=== PATIENT | female | born 1970 | race Caucasian/White ===

== ENCOUNTER 2016-06-27 18:51 | Observation (INO) | payer OTHER ==
[2016-06-27 19:00] VITALS: BMI 32.0
[2016-06-27] MEDS ORDERED: KETOROLAC TROMETHAMINE 30 MG/1 ML VIAL IVPUSH ONE (19:52)
[2016-06-27] MEDS ORDERED: SODIUM CHLORIDE 0.9% 1000 ML INFUS.BAG IV ONE (19:52)
[2016-06-27] MEDS ORDERED: KETOROLAC TROMETHAMINE 30 MG/1 ML VIAL ONE (20:28)
[2016-06-27 20:43] LABS: MCH 29.8 pg (25.7-33.7); MCHC 33.5 g/dl (32.0-36.0); MEAN CELL VOLUME 89.1 fl (80-96); MEAN PLT VOLUME 6.9 fl (7.5-11.1); PLATELET COUNT 393 K/MM3 (134-434); RDW 14.3 % (11.6-15.6); WHITE BLOOD COUNT 13.1 K/mm3 (4.0-10.0)
[2016-06-27 21:00] LABS: URINE APPEARANCE CLEAR; URINE BILIRUBIN NEGATIVE (NEGATIVE); URINE COLOR LTYELLOW; URINE GLUCOSE (UA) NEGATIVE (NEGATIVE); URINE KETONE NEGATIVE (NEGATIVE); URINE LEUK ESTERASE NEGATIVE (NEGATIVE); URINE NITRITE NEGATIVE (NEGATIVE); URINE PROTEIN NEGATIVE (NEGATIVE); URINE UROBILINOGEN NEGATIVE E.U./dl (0.2-1.0)
[2016-06-27 21:01] LABS: URINE BLOOD 1+ (NEGATIVE)
[2016-06-27 21:20] LABS: ALBUMIN 4.5 g/dl (3.4-5.0); ALK PHOS 84 U/L (45-117); ANION GAP 7 (8-16); BILIRUBIN,TOTAL 0.5 mg/dL (0.2-1.0); CALCIUM 8.7 mg/dL (8.5-10.1); CO2 29 mmol/L (21-32); CREATININE 0.7 mg/dL (0.55-1.02); GLUCOSE,RANDOM 99 mg/dL (74-106); SGOT/AST 24 U/L (15-37); SGPT/ALT 37 U/L (12-78); TOT PROT 7.7 g/dl (6.4-8.2)
--- NOTE | 2016-06-27 21:50 | PDOC ---
History of Present Illness - General Chief Complaint: Pain Stated Complaint: ABDOMINAL PAIN Time Seen by Provider: 06/27/16 19:36 - History of Present Illness Initial Comments: 06/27/16 21:39 CHIEF COMPLAINT: abdominal pain HISTORY OF PRESENT ILLNESS: 45 yo F with no significant PMH presents to ED with new sudden onset abdominal pain. Patient states she was usnig the bathrom earlier this afternoon around 3 pm when she started having severe pain to her right side. She reports feeling some pain/numbness radiating across her side toward her back and also down to her R leg. She states that pain is better when she does not move. She had one episode of loose brown stool today, but denies any nausea or vomiting. She denies any loss of bowel or bladder function , loss of sensation to extremities. She reports having blood to her rectum when wiping 2 weeks ago which she associated with her last period, which was 2 weeks ago. She denies any pain on urination, blood in urine, or urinary frequency. No recent travel or sick contacts. PAST MEDICAL HISTORY: Denies past medical history FAMILY HISTORY: Denies SOCIAL HISTORY: Lives at home with . Denies tobacco, alcohol, illicit drug use. SURGICAL HISTORY: Breast reduction 20 years ago ALLERGIES: No known drug allergies REVIEW OF SYSTEMS General/Constitutional: Denies fever or chills. Denies weakness, weight change. HEENT: Denies change in vision. Denies ear pain or discharge. Denies sore throat. Cardiovascular: Denies chest pain or shortness of breath. Respiratory: Denies cough, wheezing, or hemoptysis. Gastrointestinal: Pain to R abdomen. Denies nausea, vomiting, diarrhea or constipation. Denies rectal bleeding. Genitourinary: Denies dysuria, frequency, or change in urination. Musculoskeletal: Denies joint or muscle swelling or pain. Denies neck or back pain. Skin and breasts: Denies rash or easy bruising. Neurologic: Denies headache, vertigo, loss of consciousness, or loss of sensation. PHYSICAL EXAM General Appearance: Well-appearing, appropriately dressed. No apparent distress , no intoxication. HEENT: EOMI, PERRLA, normal ENT inspection, normal voice, TMs normal, pharynx normal. No conjunctival pallor. No photophobia, scleral icterus. Neck: Supple. Trachea midline. No tenderness, rigidity, carotid bruit, stridor , lymphadenopathy, or thyromegaly. Respiratory/Chest: Lungs CTAB. No shortness of breath, chest tenderness, respiratory distress, accessory muscle use. No crackles, rales, rhonchi, stridor , wheezing, dullness Cardiovascular: RRR. S1, S2. No JVD, murmur, bradycardia, tachycardia. Vascular Pulses: Dorsalis-Pedis (R): 2+, Dorsalis-Pedis (L): 2+ Gastrointestinal/Abdominal: Marked RLQ tenderness. Normal bowel sounds. Abdomen soft, non-distended. No tenderness or rebound tenderness. No organomegaly, pulsatile mass, guarding, hernia, hepatomegaly, splenomegaly. Lymphatic: No adenopathy, tenderness. Musculoskeletal/Extremities: R CVA tenderness. Normal inspection. FROM of all extremities, normal capillary refill. Pelvis Stable. No tenderness to extremities, pedal edema, swelling, erythema or deformity. Integumentary: Appropriate color, dry, warm. No cyanosis, erythema, jaundice or rash Neurologic: groundskeeper supervisor II-XII intact. Fully oriented, alert. Appropriate mood/affect. Motor strength 5/5. No appreciable EOM palsy, facial droop or sensory deficit. 06/27/16 21:57 06/27/16 23:53 Past History - Past Medical History Allergies/Adverse Reactions: Allergies Allergy/AdvReac Type Severity Reaction Status Date / Time No Known Allergies Allergy Verified 06/27/16 18:56 Home Medications: Ambulatory Orders NK [No Known Home Medication] 11/22/15 Other medical history: denies - Immunization History Immunization Up to Date: Yes - Psycho/Social/Smoking Cessation Hx Anxiety: No Suicidal Ideation: No Smoking History: Current every day smoker Have you smoked in the past 12 months: Yes Number of Cigarettes Smoked Daily: 5 Information on smoking cessation initiated: No Hx Alcohol Use: No Drug/Substance Use Hx: No Substance Use Type: None *Physical Exam - Vital Signs Last Vital Signs Temp Pulse Resp BP Pulse Ox 97.5 F L 85 22 115/40 98 06/27/16 18:57 06/27/16 18:57 06/27/16 18:57 06/27/16 18:57 06/27/16 18:57 ED Treatment Course - LABORATORY CBC & Chemistry Diagram: 06/27/16 20:23 06/27/16 20:23 - ADDITIONAL ORDERS Additional order review: Laboratory Results 06/27/16 06/27/16 20:36 20:23 Sodium 136 Potassium 3.7 Chloride 100 Carbon Dioxide 29 Anion Gap 7 L BUN 14 Creatinine 0.7 Creat Clearance w eGFR > 60 Random Glucose 99 Calcium 8.7 Total Bilirubin 0.5 AST 24 ALT 37 Alkaline Phosphatase 84 Total Protein 7.7 Albumin 4.5 Lipase 185 Urine Color Ltyellow Urine Appearance Clear Urine pH 5.0 Ur Specific [place] 1.010 Urine Protein Negative Urine Glucose (UA) Negative Urine Ketones Negative Urine Blood 1+ H Urine Nitrite Negative Urine Bilirubin Negative Urine Urobilinogen Negative Ur Leukocyte Esterase Negative Urine HCG, Qual Negative 06/27/16 20:23 RBC 4.36 MCV 89.1 MCHC 33.5 RDW 14.3 MPV 6.9 L - RADIOLOGY Radiology Studies Ordered: Category Date Time Status SPIRAL- RENAL-STONE CT [CT] Stat CT Scan 06/27/16 21:11 Ordered - Medications Given in the ED: ED Medications Discontinued Medications Generic Name Dose Route Start Last Admin Trade Name Freq PRN Reason Stop Dose Admin Ketorolac Tromethamine 30 mg 06/27/16 19:52 06/27/16 20:29 Toradol Injection - IVPUSH 06/27/16 19:53 30 mg ONCE ONE Administration Sodium Chloride 500 ml 06/27/16 19:52 06/27/16 20:29 Normal Saline - IV 06/27/16 19:53 500 ml ONCE ONE Administration Medical Decision Making - Medical Decision Making 06/27/16 23:53 45 yo F with no significant PMH presents to ED with new sudden onset abdominal pain. DDx: pancreatitis, appendicitis, acute cholecystitis, diverticulitis, colitis, gastritis, GERD, ovarian torson, ovarian cyst rupture. SBO considered but unlikely given recent passage of loose stool -CBC, CMP, lipase -30 mg Toradol IV -UA, UCx, UPreg 06/28/16 00:05 Labs: UA 1+ blood, WBC 13.1, otherwise unremarkable Spiral CT results: No CT evidence of urolithiasis or obstructive uropathy. No definite acute pathology is identified. Multiple mildly prominent mesenteric lymph nodes are noted centrally. Correlation with 3-4 month follow up with MRI or CT is suggested to document stability. Very small umbilical hernia containing fat only. Read by Gaston Fu MD. Will order transvaginal/transabdominal ultrasound to r/o ovarian torsion, cyst rupture. Ultrasound results negative. Patient reassessed, states she is still in severe pain. -4mg morphine -4 mg Zofran Discussed case with patient's PCP Dr. Elio Guerrero, who accepts patient for inpatient admission for intractable abdominal pain. GI consult Lantin placed. *DC/Admit/Observation/Transfer Diagnosis at time of Disposition: Abdominal pain Qualifiers: Abdominal location: right lower quadrant Qualified Code(s): R10.31 - Right lower quadrant pain - Discharge Dispostion Admit: Yes - Referrals Referrals: Elio Guerrero MD [Primary Care Provider] -
[2016-06-27] MEDS ORDERED: morphine CARPU-JECT 4 MG/1 ML DISP.SYRIN IVPUSH ONE (23:42)
[2016-06-27] MEDS ORDERED: morphine CARPU-JECT 4 MG/1 ML DISP.SYRIN ONE (23:44)
[2016-06-27] MEDS ORDERED: ONDANSETRON 4 MG/2 ML VIAL ONE (23:49)
[2016-06-27] MEDS ORDERED: FAMOTIDINE 20 MG/50 ML IVPB 50 ML IVPB ONE (23:54)
[2016-06-28] MEDS ORDERED: METRONIDAZOLE 500 MG PREMIXED 100 ML IVPB ONE ×2 (00:03→00:28)
[2016-06-28] MEDS ORDERED: FAMOTIDINE 20 MG/50 ML IVPB 50 ML IVPB ONE (00:28)
[2016-06-28] MEDS: SODIUM CHLORIDE 0.45% 1,000 ML IV SCH (00:34)
[2016-06-28] MEDS ORDERED: HYDROmorphone HCL CARPU-JECT 1 MG/1 ML DISP.SYRIN IVPUSH ONE (03:33)
[2016-06-28] MEDS ORDERED: HYDROmorphone HCL CARPU-JECT 1 MG/1 ML DISP.SYRIN ONE (03:38)
[2016-06-28] MEDS ORDERED: HYDROmorphone HCL 2 MG TABLET PO ONE ×2 (08:29→09:40)
[2016-06-28 09:30] LABS: BASOPHIL 1.3 % (0-2.0); EOSINOPHIL 5.5 % (0-4.5); MCH 30.5 pg (25.7-33.7); MEAN CELL VOLUME 89.6 fl (80-96); MEAN PLT VOLUME 6.7 fl (7.5-11.1); NEUTROPHILS 61.1 % (42.8-82.8); PLATELET COUNT 348 K/MM3 (134-434); RDW 14.2 % (11.6-15.6); WHITE BLOOD COUNT 9.4 K/mm3 (4.0-10.0)
[2016-06-28] MEDS ORDERED: HYDROmorphone HCL 2 MG TABLET ONE (09:46)
[2016-06-28] MEDS ORDERED: POLYETHYLENE GLYCOL 3350 255 GM BTL PO ONE (10:24)
[2016-06-28] MEDS ORDERED: ONDANSETRON 4 MG TABLET PO ONE (12:23)
[2016-06-28] MEDS ORDERED: ONDANSETRON *ODT* 4 MG TABLET ONE (12:25)
[2016-06-28 13:15] LABS: ALBUMIN 4.1 g/dl (3.4-5.0); ANION GAP 4 (8-16); BILIRUBIN,TOTAL 0.7 mg/dL (0.2-1.0); CALCIUM 8.3 mg/dL (8.5-10.1); CO2 30 mmol/L (21-32); CREATININE 0.7 mg/dL (0.55-1.02); GLUCOSE,RANDOM 106 mg/dL (74-106); SGOT/AST 25 U/L (15-37); SGPT/ALT 34 U/L (12-78); TOT PROT 7.5 g/dl (6.4-8.2)
[2016-06-28 13:18] LABS: ALK PHOS 79 U/L (45-117); TROPONIN I < 0.02 ng/ml (0.00-0.05)
--- NOTE | 2016-06-28 13:57 | HP ---
Admitting History and Physical - Admission Chief Complaint: c/o of rt greater than lt low abd pain. 2 days History of Present Illness: ass w nausea History Source: Patient Limitations to Obtaining History: No Limitations - Past Medical History ...LMP: 06/14/16 - Past Surgical History Past Surgical History: Yes: None - Smoking History Smoking history: Current every day smoker Have you smoked in the past 12 months: Yes Aproximately how many cigarettes per day: 5 - Alcohol/Substance Use Hx Alcohol Use: No - Social History Usual Living Arrangement: Yes: With Spouse ADL: Independent History of Recent Travel: No Home Medications - Allergies Allergies/Adverse Reactions: Allergies Allergy/AdvReac Type Severity Reaction Status Date / Time No Known Allergies Allergy Verified 06/27/16 18:56 - Home Medications Home Medications: Ambulatory Orders NK [No Known Home Medication] 11/22/15 Family Disease History - Family Disease History Family History: Unremarkable Review of Systems - Review of Systems Constitutional: reports: Other (abd pain) Eyes: reports: No Symptoms HENT: reports: No Symptoms Neck: reports: No Symptoms Cardiovascular: reports: No Symptoms Respiratory: reports: No Symptoms Gastrointestinal: reports: Abdominal Pain Genitourinary: reports: No Symptoms Breasts: reports: No Symptoms Reported Musculoskeletal: reports: No Symptoms Integumentary: reports: No Symptoms Neurological: reports: No Symptoms Endocrine: reports: No Symptoms Hematology/Lymphatic: reports: No Symptoms Psychiatric: reports: No Symptoms Physical Examination Vital Signs: Vital Signs Temperature 97.5 F L 06/27/16 18:57 Pulse Rate 62 06/28/16 11:33 Respiratory Rate 18 06/28/16 11:33 Blood Pressure 124/75 06/28/16 11:33 O2 Sat by Pulse Oximetry (%) 98 06/28/16 11:33 Constitutional: Yes: Well Nourished Eyes: Yes: WNL HENT: Yes: WNL Neck: Yes: WNL Cardiovascular: Yes: WNL Respiratory: Yes: WNL Gastrointestinal: Yes: Other (rt lt abd pain deep palp rt groin pain also) ...Rectal Exam: Yes: Deferred Renal/: Yes: WNL Breast(s): Yes: WNL Musculoskeletal: Yes: WNL Extremities: Yes: WNL Edema: No Peripheral Pulses WNL: Yes Integumentary: Yes: WNL Neurological: Yes: WNL, Unresponsive Psychiatric: Yes: WNL Labs: CBC, BMP 06/28/16 12:34 Assessment/Plan dx viral gastoenterits plan feed pt flagl iv gi to see pt
[2016-06-28] MEDS ORDERED: HYDROmorphone HCL CARPU-JECT 1 MG/1 ML DISP.SYRIN IVPB PRN (23:53)
[2016-06-29] MEDS: SODIUM CHLORIDE 0.45% 1,000 ML IV SCH (00:31)
[2016-06-29] MEDS: METRONIDAZOLE 500 MG PREMIXED 100 ML IVPB SCH ×2 (03:14→09:55)
[2016-06-29 08:34] LABS: BASOPHIL 0.6 % (0-2.0); EOSINOPHIL 6.4 % (0-4.5); MCH 30.6 pg (25.7-33.7); MCHC 33.8 g/dl (32.0-36.0); MEAN CELL VOLUME 90.3 fl (80-96); MEAN PLT VOLUME 6.9 fl (7.5-11.1); NEUTROPHILS 52.8 % (42.8-82.8); PLATELET COUNT 310 K/MM3 (134-434); RDW 14.1 % (11.6-15.6); WHITE BLOOD COUNT 8.2 K/mm3 (4.0-10.0)
[2016-06-29 09:00] LABS: CREATININE 0.6 mg/dL (0.55-1.02)
--- NOTE | 2016-06-29 09:33 | CON.GI ---
Consult Consult Specialty:: GI Referred by:: Dr Yojana Guerrero Reason for Consultation:: Abdominal pain - History of Present Illness Chief Complaint: RLQ pain History of Present Illness: 45 F with no significant PMH admitted with acute onset RLQ pain while having BM She states the pain radiated down R leg at the time. TVU negative and CT of abd/pelvis significant only for prominent mesenteric lymph nodes No mass seen No evidence of diverticulitis - History Source History Provided By: Patient Limitations to Obtaining History: No Limitations - Past Medical History ...LMP: 06/14/16 - Past Surgical History Past Surgical History: Yes: None - Alcohol/Substance Use Hx Alcohol Use: No - Smoking History Smoking history: Current every day smoker Have you smoked in the past 12 months: Yes Aproximately how many cigarettes per day: 5 - Social History ADL: Independent History of Recent Travel: No Home Medications - Allergies Allergies/Adverse Reactions: Allergies Allergy/AdvReac Type Severity Reaction Status Date / Time No Known Allergies Allergy Verified 06/27/16 18:56 - Home Medications Home Medications: Ambulatory Orders NK [No Known Home Medication] 11/22/15 Physical Exam-GI Vital Signs: Vital Signs Temperature 99.0 F 06/29/16 06:00 Pulse Rate 67 06/29/16 06:00 Respiratory Rate 20 06/29/16 07:00 Blood Pressure 113/65 06/29/16 06:00 O2 Sat by Pulse Oximetry (%) 92 L 06/29/16 07:00 Constitutional: Yes: Well Nourished, No Distress, Calm HENT: Yes: WNL Neck: Yes: Supple Cardiovascular: Yes: Regular Rate and Rhythm Respiratory: Yes: CTA Bilaterally Gastrointestinal Inspection: Yes: WNL ...Auscultate: Yes: Normoactive Bowel Sounds ...Palpate: Yes: Soft, Tenderness (RLQ) Labs: CBC, BMP 06/29/16 06:40 06/29/16 06:40 Hepatic Panel Total Bilirubin 0.7 mg/dL (0.2-1.0) D 06/28/16 12:34 AST 25 U/L (15-37) 06/28/16 12:34 ALT 34 U/L (12-78) 06/28/16 12:34 Alkaline Phosphatase 79 U/L (45-117) 06/28/16 12:34 Albumin 4.1 g/dl (3.4-5.0) 06/28/16 12:34 Abnormal Lab Results 06/28/16 06/28/16 06/29/16 09:18 12:34 06:40 RBC 3.59 L MPV 6.7 L 6.9 L Eosinophils % 5.5 H 6.4 H Sodium Chloride Anion Gap 4 L BUN Calcium 8.3 L 06/29/16 06:40 RBC MPV Eosinophils % Sodium 135 L Chloride 110 H Anion Gap -3 L BUN 6 L D Calcium 8.0 L Imaging - Results Cat Scan: Report Reviewed (as noted) Ultrasound: Report Reviewed (TVU-normal ovaries) Assessment/Plan Acute onset RLQ pain with radiation down leg, with abdominal tenderness Poss musculoskeletal issue No evidence of ovarian issue, no diverticulitis and no other aradiologic or biochemical bnormalities noted Advance diet. If tolerated and pain continues to resolve, can d/c with outpat follow-up Cared furnished, colonoscopy advised in 4-6 weeks
--- NOTE | 2016-06-29 10:38 | PN ---
Progress Note, Physician - Current Medication List Current Medications: Active Medications Hydromorphone HCl (Dilaudid Injection -) 1 mg IVPB Q12H PRN PRN Reason: PAIN Last Admin: 06/29/16 00:30 Dose: 1 mg Sodium Chloride (1/2 Normal Saline) 1,000 mls @ 75 mls/hr IV ASDIR PRATIK Last Admin: 06/29/16 00:31 Dose: 75 mls/hr Metronidazole (Flagyl 500mg Premixed Ivpb -) 100 mls @ 100 mls/hr IVPB BID PRATIK Last Admin: 06/29/16 09:55 Dose: 100 mls/hr - Objective Vital Signs: Vital Signs Temperature 99.0 F 06/29/16 06:00 Pulse Rate 67 06/29/16 06:00 Respiratory Rate 20 06/29/16 07:00 Blood Pressure 113/65 06/29/16 06:00 O2 Sat by Pulse Oximetry (%) 92 L 06/29/16 07:00 Labs: CBC, BMP 06/29/16 06:40 06/29/16 06:40 Assessment/Plan pt no [id number] vss d/c now w po flagl 5 days appt w me 1200 tomorrow
[2016-06-29] MEDS ORDERED: ACETAMINOPHEN 325 MG TABLET (FP) PO PRN (11:17)
[2016-06-29 13:05] VITALS: BP 112/70; PULSE 80
[2016-06-29 13:06] VITALS: TEMP 98.3
[2016-07-15 17:47] LABS: PCP BLOOD NEGATIVE
== END 2016-06-29 13:40 | disposition home or self-care (01) ==
LOC: JER 18:51 → INTOOBSV 06-28 00:58 → UNDOADMOB 06-28 00:58 → JERBED 06-28 00:58 → J5S 06-28 15:04
PROVIDERS: ADMIT Family Medicine; ATTEND Family Medicine
DX: A08.39 Other viral enteritis (principal); F17.200 Nicotine dependence, unspecified, uncomplicated
CPT/HCPCS: 36415; 74176; 76830-TC; 76856-TC; 80048; 80053; 80307; 81003; 81015; 82550; 83615; 83625; 83690; 84484; 84703; 85025; 85027; 87086; 99285-25; G0378